=== PATIENT | male | born 1980 | race Caucasian/White ===

== ENCOUNTER 2019-01-19 11:46 | Emergency (ER) | payer MEDICAID, OTHER, SELFPAY ==
[~2019-01-19] VITALS: Ht 185.4 cm; Wt 119.4 kg
[2019-01-19 11:57] VITALS: BP 142/74
== END 2019-01-19 13:24 | disposition home or self-care (01) ==
LOC: ED 13:13
DX: A59.03 Trichomonal cystitis and urethritis (principal)
CPT/HCPCS: 81003; 99283